=== PATIENT | female | born 1965 | race Caucasian/White ===

== ENCOUNTER 2025-01-12 16:55 | Emergency (ER) | payer BC, SELFPAY ==
[2025-01-12 16:59] VITALS: BP 148/94
--- NOTE | 2025-01-12 17:48 | ED.GENMED ---
History of Present Illness
General
Chief Complaint: Abnormal Lab Value
Source: patient
Exam Limitations: none
Time Seen by Provider: 01/12/25 17:42
Nursing documentation reviewed up to this point in time: agreed with
History of Present Illness
History of Present Illness:
Note:
CHIEF COMPLAINT(S)
Suspected urinary tract infection (UTI) and low back pain.
HISTORY OF PRESENT ILLNESS
The patient is a 60-year-old female with a history of hypertension and allergy-induced asthma who presented with symptoms suggestive of a UTI and low back pain. She reported a burning sensation and increased frequency of urination. She initially
sought care at an urgent care center where lab work revealed significantly low potassium levels at 2.7 mEq/L. During the current evaluation, she described having experienced a low-grade dull ache in her back, without prior episodes of soreness. She
has noted a decreased appetite and feeling 'off.' She is currently on metoprolol, hydrochlorothiazide, and montelukast for her chronic conditions. An ECG showed abnormalities related to hypokalemia. Discussion included possible hospitalization for
potassium supplementation given ECG changes. Repeat labs for potassium and magnesium levels were pending. The plan also considered urinary tract infection treatment following further urinalysis.
PAST MEDICAL HISTORY
Hypertension, allergy-induced asthma.
PAST SURGICAL HISTORY
section 25 years ago.
MEDICATIONS
Metoprolol, hydrochlorothiazide, montelukast, omeprazole.
REVIEW OF SYSTEMS
- Constitutional: Decreased appetite, feeling 'off'.
- Genitourinary: Burning sensation, increased frequency of urination.
- Musculoskeletal: Low-grade dull ache in the back.
PHYSICAL EXAM
- General: No distress, afebrile.
- Cardiovascular: Regular rate and rhythm, no murmurs.
- Pulmonary: Clear lungs, no respiratory distress.
- Abdomen: Soft, non-tender, non-distended, no costovertebral angle tenderness.
- Neurological: Cranial nerves II through XII intact, no neurologic deficits.
- Extremities: No edema, normal pulses in all extremities.
PLAN
Proceed with oral and IV potassium supplementation. Monitor potassium and magnesium levels. Hospitalize for potassium repletion due to ECG changes. Conduct further urinalysis including culture to confirm urinary tract infection and guide treatment.
DIFFERENTIAL DIAGNOSIS
The Differential Diagnosis includes, in no particular order and is not limited to:
1. Urinary tract infection
2. Pyelonephritis
3. Hypokalemia
4. Electrolyte imbalance
5. Acute kidney injury
6. Dehydration
7. Nephrolithiasis
8. Spinal disk herniation
9. Myofascial pain syndrome
10. Bladder infection
EKG
My independent EKG interpretation is:
- Heart rate: 75 bpm
- Rhythm: Normal sinus rhythm
- T-wave inversions: Present in lateral leads and superior leads
- QRS duration: Normal
- UT interval: Normal
- QT interval: Normal
CARE-UPDATE
01/12/25 - 19:25
Potassium level is 3.1; nephrology recommends KCL rider and oral potassium repletion. Magnesium is at 2.0. Patient denies chest pain and shortness of breath. Urinalysis does not support UTI; patient to be discharged with instructions for primary
care follow-up for BMP and lab review.
Disposition:
ASSESSMENT
Hypokalemia.
DISPOSITION
Discharge home.
PATHOLOGIES TO CONSIDER
Pyelonephritis, Electrolyte imbalance, Acute kidney injury, Dehydration.
FOLLOW-UP INSTRUCTIONS
Follow up with primary care for BMP and lab review.
MEDICAL DECISION MAKING
1. Number & Complexity of Problems: Chronic conditions affecting care: hypertension, allergy-induced asthma. Differential diagnoses considered include urinary tract infection, electrolyte imbalance, acute kidney injury, and dehydration.
2. Data Reviewed:
- Labs: My independent review of potassium level is 3.1; consistent with findings of hypokalemia impacting ECG changes.
3. Risk: Consideration of admission was made due to complexity and risk from ECG changes and hypokalemia, but outpatient management was deemed appropriate based on lab results and scheduled follow-up.
Phy Exam
Physical Exam
Physical Exam:
.
Course
Orders/Labs/Results
Orders:
Orders
01/12/25 17:03
Electrocardiogram (*1) Urgent
Reason for Study: Other
Other Reason for Exam: low potassium
EKG- Treatment ONCE
01/12/25 17:42
Complete Blood Count/With Diff Urgent
Comprehensive Metabolic Panel Urgent
Magnesium Urgent
Comment: ADD ON
01/12/25 17:48
Add On- LAB Urgent
Tests Added?: magnesium
01/12/25 17:57
Potassium Chloride 10% Elixir [KCl Elixir] 40 meq PO NOW STA
Potassium Chloride [KCl] 40 meq 0.9% Sodium Chloride 250 ml [Nss] 250 ml IV NOW
01/12/25 18:32
Urinalysis Reflex To Culture Urgent
Date Specimen was Collected: 01/12/25
Time Specimen was Collected: 18:26
Urine Microscopic Reflex Cult Urgent
Urine Culture Urgent
STEPHANIE Source: U
Specimen Description:
Date Specimen was Collected: 01/12/25
Time Specimen was Collected: 18:26
Abnormal Lab Results
01/12/25 01/12/25
17:42 18:32
Absolute Monos (auto) 0.7 H 10^3/uL
(0.1-0.6)
Lymphocytes % 19.9 L %
(20.5-51.1)
Monocytes % 10.4 H %
(1.7-9.3)
Potassium 3.1 L mmol/L
(3.5-5.1)
BUN 20 H mg/dl
(7-17)
Glucose 101 H mg/dl
(70-99)
Total Bilirubin 1.6 H mg/dl
(0.2-1.3)
Urine Ketones 2+ A
(Negative)
Leukocyte Esterase Rfl 1+ A
(Negative)
Urine Bacteria (Reflex) Few A
(Negative)
Urine Albumin (Reflex) 2+ A
(Neg - Trace)
01/12/25 17:42
01/12/25 17:42
Vital Signs
Initial and Last Documented VS:
Initial Vital Signs
Temp Pulse Resp BP Pulse Ox
97.9 F 76 16 148/94 97
01/12/25 16:59 01/12/25 16:59 01/12/25 16:59 01/12/25 16:59 01/12/25 16:59
Last Documented Vital Signs
Temp Pulse Resp BP Pulse Ox
97.9 F 61 18 148/94 97
01/12/25 16:59 01/12/25 19:17 01/12/25 19:17 01/12/25 16:59 01/12/25 17:49
*Pulse Oximetry
SaO2: 97
Oxygen Mode of Delivery: Room air
Patient hypoxic: no
*Critical Care Note
Total Time (30-74mins, 75-104mins- exclusive of procedures): Not Applicable
Update Note
Update Note:
Patient instructed to stop hydrochlorothiazide and get repeat basic metabolic panel in 1 to 2 days by primary care
ED Attending Note
-
Portions of this chart may have been created with voice recognition software.� Occasional wrong word or��sound alike� substitutions may have occurred due to the inherent limitations of voice recognition software.
Discharge Plan
Departure
Patient Disposition: Home (Routine Discharge)
Date of Disposition: 01/12/25
Time of Disposition: 19:30
Patient with high blood pressure during this ER visit?: Yes
Condition: Good
Discharge Problem:
Acute hypokalemia
Instructions: BLOOD PRESSURE, Hypokalemia
Activity Restrictions/Additional Instructions:
STOP HCTZ. return for any concerns.
Interventions
Interventions:
*Risk Screen - Suicide Last Done: 01/12/25 16:59
*General Assessment Last Done: 01/12/25 16:59
*Neglect/Abuse Screening Last Done: 01/12/25 17:02
*ED- Fall Risk Assessment Last Done: 01/12/25 19:10
*ED COVID-19 Vaccine History Last Done: 01/12/25 19:10
Discharge Date and Time
Print Language: GUAMANIAN
[2025-01-12 17:50] LABS: % Basophils 1.2 % (0-2); % Eosinophils 1.7 % (0-6); % Immature Granulocytes 0.3 % (0-0.5); % Lymphocytes 19.9 % (20.5-51.1); % Monocytes 10.4 % (1.7-9.3); % Neutrophils 66.5 % (42.2-75.2); Absolute Basophils 0.1 10^3/uL (0-0.2); Absolute Eosinophils 0.1 10^3/uL (0-0.7); Absolute Lymphocytes 1.3 10^3/uL (1.2-3.4); Absolute Monocytes 0.7 10^3/uL (0.1-0.6); Absolute Neutrophils 4.3 10^3/uL (1.4-6.5); Hematocrit 41.4 % (37.0-47.0); Hemoglobin 14.1 g/dL (12.0-16.0); Mean Corp Hgb Conc. 34.1 g/dL (33.0-37.0); Mean Corpuscular Hgb 29.9 pg (27.0-31.0); Mean Corpuscular Volume 87.7 fL (81.0-99.0); Mean Platelet Volume 8.7 fL (7.4-10.4); Nucleated Red Blood Cells % 0 %; Platelet Count 303 10^3/uL (130-400); Red Blood Cell Count 4.72 10^6/uL (4.20-5.40); Red Cell Dist. Width 12.3 % (11.5-14.5); White Blood Cell Count 6.4 10^3/uL (4.8-10.8)
[2025-01-12 18:06] LABS: ALT (SGPT) 24 U/L (0-35); AST (SGOT) 31 U/L (14-36); Alkaline Phosphatase 69 U/L (38-126); Blood Urea Nitrogen 20 mg/dl (7-17); Carbon Dioxide 29 mmol/L (22-30); Chloride 105 mmol/L (98-107); Glucose 101 mg/dl (70-99); Potassium 3.1 mmol/L (3.5-5.1); Sodium 139 mmol/L (135-145); Total Bilirubin 1.6 mg/dl (0.2-1.3); Total Protein 6.7 g/dl (6.3-8.2); eGFR > 60.00
[2025-01-12] MEDS: KCL ELIXIR 40 MEQ PO (18:19)
[2025-01-12 18:37] LABS: Urine Albumin 2+ (Neg - Trace); Urine Bilirubin Negative (Negative); Urine Character Clear (Clear); Urine Color Yellow; Urine Glucose Negative (Negative); Urine Ketone 2+ (Negative); Urine Leukocyte 1+ (Negative); Urine Nitrite Negative (Negative); Urine Occult Blood Negative (Negative); Urine Urobilinogen 1+ (Neg - 1+)
[2025-01-12 18:47] LABS: Urine Squamous Cell >30 /LPF (Few)
[2025-01-12 18:48] LABS: Urine Red Blood Cell 0-2 /HPF (0-2)
[2025-01-12 18:50] LABS: Urine Bacteria Few (Negative); Urine Mucus Moderate
[2025-01-12] MEDS: KCL 270 MEQ IV (19:52)
[2025-01-12 20:00] VITALS: BP 124/77
[2025-01-12 21:00] VITALS: BP 116/77
[2025-01-12 22:00] VITALS: BP 119/70
[2025-01-12 23:00] VITALS: BP 109/58
[2025-01-13] VITALS: BP 127/74
[2025-01-13 00:55] VITALS: BP 124/83
== END 2025-01-13 01:21 | disposition home or self-care (01) ==
LOC: EMR 16:55
PROVIDERS: EMERGENCY PHYSICIAN Emergency Medicine; FAMILY PHYSICIAN Family Medicine
DX: E87.6 Hypokalemia (principal); R35.0 Frequency of micturition; I10 Essential (primary) hypertension; J45.909 Unspecified asthma, uncomplicated; Z79.899 Other long term (current) drug therapy
CPT/HCPCS: 96365; 96366; 99284; 80053; 81003; 81015; 83735; 85025; 87086; 93005